=== PATIENT | female | born 1950 | race Caucasian/White ===

== ENCOUNTER 2021-08-06 17:01 | Emergency (ER) | payer MEDICARE, SELFPAY ==
[2021-08-06 17:03] VITALS: BP 147/64; PULSE 84; RESP 18; TEMP 36.5; O2SAT 99; BMI 44.6
--- NOTE | 2021-08-06 17:53 | CT_ITS ---
EXAM: CT SPINE - CERVICAL WITHOUT IV REASON FOR EXAM: Female, 71 years old. NECK PAIN fall Individualized dose optimization techniques were used for this CT. TECHNIQUE: Multiplanar images were obtained of the cervical spine. IV contrast was not utilized. COMPARISON: None. FINDINGS: The vertebral bodies do maintain their height. The odontoid process is intact. There is no anterolisthesis or fracture. No pre-vertebral soft tissue swelling is seen. The intravertebral disc height is lost. There are scattered lymph nodes in the neck. There are degenerative changes of the osseous structures. There is bilateral facet arthropathy. There are scattered levels of foraminal stenosis. There are vascular calcifications. There is mild straightening of the normal cervical lordosis. This can suggest neck strain. CT/Spine Cervical without Contras IMPRESSION: Degenerative changes of the cervical spine. There is mild straightening of the normal cervical lordosis. This can suggest neck strain. Electronically Signed: Paul Chaney MD at 19:12 EST , Service support ,
--- NOTE | 2021-08-06 17:53 | CT_ITS ---
STUDY: CT BRAIN WITHOUT CONTRAST REASON FOR EXAM: Female, 71 years old. Headache, FELL ON ICE HITTING HEAD,DENIES LOC, abrasion TO FOREHEAD trauma Individualized dose optimization techniques were used for this CT. TECHNIQUE: Transaxial CT imaging of the brain was performed without administration of intravenous contrast material. COMPARISON: None FINDINGS: There are calcifications around the carotid artery. These are noted in the cavernous carotid arteries. Normal calvarium. There is no underlying fracture. Soft tissue swelling of the scalp- right. There is mild cerebral atrophy with widening of the extra-axial spaces and ventricular dilatation. There are areas of decreased attenuation within the white matter tracts of the supratentorial brain, consistent with microvascular disease changes. Normal basal ganglia and thalami. Normal brainstem. There is mild cerebellar atrophy. There is no intracranial hemorrhage. There are no findings of an acute ischemic infarction. Normal visualized paranasal sinuses. ASPECTS Score for Acute Strokes: 10/ CT/Brain/Head without Contrast IMPRESSION: There is no underlying fracture. Soft tissue swelling of the scalp- right. Chronic involutional changes of the brain. Electronically Signed: Paul Chaney MD at 19:03 EST , Service support ,
--- NOTE | 2021-08-06 17:55 | EDS_ITS ---
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 Denies any LOC. Mild headache. Also complaining of right lateral neck pain. Also pain to her right elbow, wrist and hand. And right knee. She denies being on any blood thinners. She states she was fine prior to the fall. Prior similar symptoms: No Recent Illness/Hospitalization: No PFSH PFSH Medical History Hypothyroid Home Medications hydrocodone-acetaminophen 1 tab PO Q4H PRN 5 Days #20 tab 08/06/21 [Rx Last Taken Unknown] Allergy/AdvReac Type Severity Reaction Status Date / Time codeine Allergy Chest Verified 08/06/21 17:06 tightness morphine Allergy Chest Verified 08/06/21 17:06 tightness Penicillins [PCN] Allergy Swelling Verified 08/06/21 17:06 Surgical History History of bilateral hip replacements History of bilateral knee replacement Social History Smoking Status: Former smoker ROS ROS ED ROS Narrative Denies recent illness. Review of Systems ROS Unobtainable: Denies due to encephalopathy Constitutional Constitutional ED: Denies fever(s) Eyes Eyes: Denies change in vision ENT ENT ED: Denies ear pain Cardiovascular Cardiovascular: Denies chest pain Respiratory/Chest Respiratory/Chest: Denies cough or dyspnea Gastrointestinal Gastrointestinal: Denies abdominal pain or nausea Genitourinary Genitourinary ED: Denies dysuria Musculoskeletal Musculoskeletal: Denies arthralgias or myalgias Integumentary Denies rash Neurologic Neurologic: Reports headache(s) Psychiatric Psychiatric: Denies depression Endocrine Endocrinology: Denies polyuria Hematologic/Lymphatic Hematologic/Lymphatic: Denies easy bruising Allergic/Immunologic Allergic/Immunologic ED: Denies urticaria EXAM Physical Exam Narrative Exam Narrative: 71-year-old female lying in bed. Vital signs are stable. Afebrile. HEENT exam contusion abrasion to right forehead. Pupils are reactive light. Trachea midline. Tenderness to the right lateral neck not necessarily in the C-spine. Lungs clear to auscultation. Chest nontender. Heart regular rate and rhythm no murmur. Abdomen soft nontender. Pelvic girdle intact. She has tenderness and swelling to her right elbow. Abrasion to her right wrist and tenderness. And proximal right hand. Left upper extremities unremarkable. Left lower extremities unremarkable. Right knee has a contusion and abrasion. Prior knee replacement. Dorsi plantar flexion intact bilaterally. Back nontender. Neurologically she is awake and alert. GCS of 15. Const Vital Signs: 08/06/21 17:03 08/06/21 17:09 Temperature 97.7 F L Temperature Source Temporal Pulse Rate 84 Respiratory Rate 18 Respiratory Effort Normal Non-Labored Respiratory Depth Normal Respiratory Pattern Normal Blood Pressure 147/64 H Blood Pressure Mean 91 Pulse Ox 99 Oxygen Delivery Method Room Air Positive well nourished, well developed and obese; Negative for cachectic, c ontractures or unkempt General Appearance ED: well developed and NAD; Negative for unkempt, cachectic or contractures Nutritional Appearance: obese; Negative for cachectic HEENT Denies normocephalic trauma and tenderness; Negative for atraumatic Eyes PERRL and EOMs intact bilaterally General Eye ED: Negative for pale conjunctiva or scleral icterus Neck no lymphadenopathy and supple Neck Narrative: Right lateral neck tenderness. Not necessarily in the C-spine. General: tenderness Chest Wall inspection of chest normal and palpation of chest normal Resp normal respiratory effort, no retractions and clear to auscultation bilaterally Auscultation: Negative for rales, rhonchi or wheezes Cardio regular rate, regular rhythm, S1 normal heart sound, S2 normal heart sound and no murmurs GI non-tender, non-distended and no masses Inspection: Negative for abdominal distention Auscultation: normoactive bowel sounds Palpation: soft; Negative for guarding or rebound tenderness present Back/Spine no CVA tenderness General Back: Negative for CVA tenderness Cervical Spine: Negative for cervical spine tenderness Thoracic Spine / Upper Back: Negative for thoracic spinal tenderness Lumbar Spine / Lower Back: paraspinal muscle tenderness; Negative for lumbar spinal tenderness Extremity normal to inspection, no calf tenderness and no pedal edema Extremity Narrative: Except tenderness and swelling to the right posterior elbow, right wrist and hand. Abrasion right knee. No bony deformities. Neuro oriented x3, moves all extremities and no focal motor deficits [place] Coma Scale: document GCS findings Spontaneous Obeys Commands Oriented 15 Sensorium / Orientation: alert, oriented to person, oriented to place and oriented to time; Negative for orientation impaired, confused, lethargic or stuporous Psych mental status grossly normal Appearance: Negative for unkempt Skin Lesions: no lesions Rashes: no rashes Trauma: abrasion MDM MDM MDM Narrative Medical decision making narrative: 71-year-old female slipped and fell on the ice hitting her head. She will get a CT of her brain and C-spine. She was given IV Dilaudid for pain and Zofran for nausea. X-rays of the right upper extremity and right knee are being obtained. Repeat exam patient is doing well at 7:05 PM. I discussed her x-ray results with her and another female present bedside. Being given another half a milligram of Dilaudid. She will be placed in a long-arm posterior splint of the right elbow fractures. She will be discharged home with [place]. She is to follow-up with an orthopedic group in [place] because that is where she lives. Radiography Diagnostic Testing: Right elbow x-ray interpreted by myself shows a displaced proximal ulna fracture and a proximal radius fracture. Two views. Right wrist x-ray interpreted by myself shows no acute abnormality. No fracture seen. Three views. Right hand x-ray interpreted by myself shows no acute fracture. Three views. Right knee x-ray shows no acute abnormality. Prosthesis is unremarkable of the right knee. Procedures Upper Extremity Splints Upper Extremity Splint: Orthoglass and Long arm Splint Fabrication: Fabricated Location: Right Discharge Plan Triage Chief Complaint: Fall Other Complaint: Upper Extremity Injury ED Provider: Vinay Marquez Dx/Rx/DC Orders Clinical Impression: Fall, Closed head injury, Cervical muscle strain, Closed fracture of right elbow, Right wrist sprain, Abrasion of knee, right Instructions: ED Elbow Fracture, ED Head Injury (Adult) Prescriptions: New hydrocodone-acetaminophen 5-325 mg tablet 1 tab PO Q4H PRN (Reason: pain) 5 Days Qty: 20 RF: 0 Referrals: POONAM DEE [Other] Activity Restrictions/Additional Instructions: Ice all sore areas. Keep the splint on, dry and clean. Call and follow-up with a [place] orthopedic physician as soon as possible. You have a broken right elbow that most likely will need surgical repair. [place] for pain. Make sure you are drinking plenty of water and eating plenty of fruits, vegetables and fiber to prevent constipation. You have a head injury long-term and should be fine. If you would start having significant vomiting, worsening headache or being confused you should have that reevaluated. Disposition Disposition: Home, Self Care
[2021-08-06] MEDS: Ondansetron 4 MG/2 ML Vial IV (18:09)
[2021-08-06] MEDS: HYDROmorphone 0.5 MG/0.5 ML SYRINGE IV ×2 (18:09→19:36)
--- NOTE | 2021-08-06 18:35 | RAD_ITS ---
STUDY: XR Wrist Min 3 Views REASON FOR EXAM: Female, 71 years old. PAIN TECHNIQUE: XR Wrist Min 3 Views COMPARISON: None. FINDINGS: There are no acute findings of the visualized distal radius and ulna. There are no acute findings of the radiocarpal articulation. Normal distal radioulnar articulation. Normal carpal bones. Normal carpal articulations. There is degenerative arthrosis of the carpometacarpal articulation of the thumb. Normal second through fifth carpometacarpal articulations. There are no acute findings of the visualized metacarpal bones. The soft tissue structures are unremarkable. RAD/Wrist min 3 Views IMPRESSION: There is degenerative arthrosis of the carpometacarpal articulation of the thumb. Electronically Signed: Paul Chaney MD at 19:10 EST , Service support ,
--- NOTE | 2021-08-06 18:35 | RAD_ITS ---
EXAM: XR RIGHT ELBOW COMPLETE, 3 OR MORE VIEWS CLINICAL INDICATION: fall fracture pain TECHNIQUE: Frontal, lateral and oblique views of the right elbow. This report was created using i[employer] report generation technology. COMPARISON: None. FINDINGS: BONES/JOINTS: Disruption of the anterior humeral line and radiocapitellar line. Joint effusion. Fracture of the radial head and olecranon. No destructive or sclerotic lesions. SOFT TISSUES: Unremarkable. No soft tissue swelling or gas. No radiopaque foreign body. RAD/Elbow min 3 Views IMPRESSION: 1. Disruption of the anterior humeral line and radiocapitellar line. 2. Joint effusion. Fracture of the radial head and olecranon. Electronically Signed: Paul Chaney MD at 19:10 EST , Service support ,
--- NOTE | 2021-08-06 18:35 | RAD_ITS ---
STUDY: XR Hand Min 3 Views REASON FOR EXAM: Female, 71 years old. PAIN TECHNIQUE: XR Hand Min 3 Views COMPARISON: None. FINDINGS: Normal radiocarpal articulation. Normal distal radioulnar joint. Normal visualized carpal bones. Normal carpal articulations There is degenerative arthrosis of the carpometacarpal (CMC) articulation of the thumb. Normal second through fifth carpometacarpal joints. Normal metacarpi. Normal metacarpophalangeal joint of the thumb. Normal interphalangeal joint of the thumb. Normal proximal and distal phalanges of the thumb. Normal metacarpophalangeal joints of the second through fifth fingers. Normal proximal and distal interphalangeal joints of the second through fifth fingers. Normal phalanges of the second through fifth fingers. The soft tissue structures are unremarkable. RAD/Hand Min 3 Views IMPRESSION: There is degenerative arthrosis of the carpometacarpal (CMC) articulation of the thumb. Electronically Signed: Paul Chaney MD at 19:10 EST , Service support ,
--- NOTE | 2021-08-06 18:35 | RAD_ITS ---
STUDY: XR Knee 1 or 2 Views 08/06/2021 7:10 PM REASON FOR EXAM: Female, 71 years old. PAIN TECHNIQUE: XR Knee 1 or 2 Views COMPARISON: None. FINDINGS: There is demineralization of the visualized distal femur. There is demineralization of the tibia and fibula. Total right knee arthroplasty. Normal medial femorotibial compartment. Normal lateral femorotibial compartment. Normal patellofemoral articulation. The soft tissue structures are unremarkable. RAD/Knee 1 or 2 Views IMPRESSION: There are no acute findings. Electronically Signed: Paul Chaney MD at 19:11 EST , Service support ,
== END 2021-08-06 20:58 | disposition home or self-care (01) ==
PROVIDERS: Emergency Provider Emergency Medicine; Visit Provider Emergency Medicine
DX: S09.90XA Unspecified injury of head, initial encounter (principal); S16.1XXA Strain of muscle, fascia and tendon at neck level, initial encounter; Z87.891 Personal history of nicotine dependence; S42.401A Unspecified fracture of lower end of right humerus, initial encounter for closed fracture; S63.501A Unspecified sprain of right wrist, initial encounter; S80.211A Abrasion, right knee, initial encounter; E66.9 Obesity, unspecified; W00.0XXA Fall on same level due to ice and snow, initial encounter
CPT/HCPCS: 29105; 29405; 70450; 72125; 73080; 73110; 73130; 73560; 96374; 96375; 96376; 99285; A4216; J2405